=== PATIENT | male | born 1950 | race Caucasian/White ===

== ENCOUNTER → 2016-11-03 | Outpatient (CLI) | payer MEDICARE, BC ==
[~2016-11-03] MED LIST: AMBIEN10 MG PO; ASPIRIN81 MG PO; CENTRUM SILVER1 TAB PO; COLACE100 MG PO; CPAP INH; DULCOLAX10 MG R; FIBERCON1 TAB PO; FLEXERIL10 MG PO; NEXIUM 24HR22.3 MG PO; OXYCONTIN EXTEN20 MG PO; PROBIOTIC1 EAC1 PO; REMERON 30 MG30 MG PO; ROXICODONE 5MG (5 MG PO; SENNA8.6 MG PO; TRAMADOL HCL50 MG PO; TYLENOL EXTRA500 MG PO; VITAMIN D1000 UNIT PO; ZANTAC (NON-FO150 MG PO; ZYRTEC10 MG PO
== END | disposition disaster alternative care site (69) ==
LOC: GRAD 07:37
DX: M54.9 Dorsalgia, unspecified (principal); R20.0 Anesthesia of skin; M48.06 Spinal stenosis, lumbar region; Z98.890 Other specified postprocedural states

== ENCOUNTER 2016-11-17 15:00 | Inpatient (IN) | payer MEDICARE, BC ==
[~2016-11-17] VITALS: Ht 175.3 cm; Wt 93.6 kg
--- NOTE | ~2016-11-17 | OR ---
PATIENT'S NAME: CARMENCITA PERRY [facility] AGE: 66 Y [address] ROOM: [id number] [place], [place] [address] LOCATION: [facility] ADMIT DATE: 11/18/2016 OR/Procedure Report DISCHARGE DATE: FAMILY PHYSICIAN: Bony Florez MD ATTENDING PHYSICIAN: LAUREN LANDEROS SURGEON: Lauren Landeros MD BUSINESS PROJECT ANALYST: DATE OF PROCEDURE: 11/18/2016 ANESTHESIOLOGIST: Eddy Snell MD ANESTHESIA: General. COMPLICATIONS: None. ESTIMATED BLOOD LOSS: 200 mL. PREOPERATIVE DIAGNOSES: 1. L1-L2 severe spinal stenosis with neurogenic claudication. 2. L2-L3 severe spinal stenosis with neurogenic claudication. 3. History of L3-L4, L4-L5, and L5-S1 laminectomy. 4. L1-L2, L2-L3, L3-L4, L4-L5, and L5-S1 severe facet arthropathy with mechanical low back pain. POSTOPERATIVE DIAGNOSES: 1. L1-L2 severe spinal stenosis with neurogenic claudication. 2. L2-L3 severe spinal stenosis with neurogenic claudication. 3. History of L3-L4, L4-L5, and L5-S1 laminectomy. 4. L1-L2, L2-L3, L3-L4, L4-L5, and L5-S1 severe facet arthropathy with mechanical low back pain. PROCEDURES PERFORMED: 1. L1-L2 decompressive laminectomy, partial bilateral inferior facetectomy, and decompression of the neural elements for spinal stenosis. 2. L2-L3 decompressive laminectomy, partial bilateral inferior facetectomy, and decompression of the neural elements for spinal stenosis. 3. L1-L2, L2-L3, L3-L4, L4-L5, and L5-S1 posterolateral non-instrumented fusion. 4. Intraoperative fluoroscopy and interpretation. 5. Insertion of a mixture of allograft, autograft, and DBM bone from L1 to S1 for posterolateral arthrodesis. 6. Decortication of bilateral L1-L2, bilateral L2-L3, bilateral L3-L4, bilateral L4-L5, and bilateral L5-S1 facet joints for posterolateral arthrodesis. PATIENT'S NAME: CARMENCITA PERRY [facility] AGE: 66 Y [address] ROOM: [id number] [place], [place] [address] LOCATION: [facility] ADMIT DATE: 11/18/2016 OR/Procedure Report DISCHARGE DATE: FAMILY PHYSICIAN: Bony Florez MD ATTENDING PHYSICIAN: LAUREN LANDEROS CLINICAL HISTORY: The patient is a 66-year-old male patient, who was diagnosed clinically and on imaging to have the above-mentioned diagnoses. I recommended the above-mentioned surgery to the patient to try to relieve his symptoms and improve his daily functioning. I discussed the procedure itself, the benefits, and all the risks associated with it. The patient was interested in proceeding with surgery so he was brought in for the elective operation. DESCRIPTION OF PROCEDURE: The patient was seen in the preoperative care unit and the correct side was marked. Then, he was transferred to the main operating theater, was given general anesthetic, and underwent endotracheal intubation without complications. Preoperative antibiotics were given. Guerra catheter and calf compressors were used throughout the procedure. Then, the patient was carefully turned to prone position on a gel-padded Hiram table and all his joints and bony prominences were securely padded. The previous midline lumbar scar was identified. Then, I marked a midline lumbar incision extending from the spinous process of L1 down to S1 level. The surgical site was prepped and draped as per usual. The proposed skin incision was infiltrated with 0.25% Marcaine with epinephrine. Skin was sharply opened down to the subcutaneous tissue, then using a monopolar cautery, I exposed the posterior elements of L1, L2, L3, L4, L5, and S1 vertebra. As expected, there was a laminectomy defect at L3-L4, L4- L5, and L5-S1 levels. I had no complications during the exposure. The L1-L2, L2-L3, L3-L4, L4-L5, and L5-S1 facet joints were exposed bilaterally. The correct level was then confirmed using intraoperative fluoroscopy. I started by performing the laminectomy at L1-L2 and L2-L3 levels. The spinous processes of L1, L2 vertebra were removed using Leksell. Then, using a high-speed Midas Mc drill, I drilled away the L1, L2 laminae. I also did bilateral partial inferior facetectomy at L1, and L2 vertebra. The ligamentum flavum was exposed at L1-L2 and L2-L3 levels. As expected, there was severe spinal stenosis. The ligamentum flavum was completely removed at L1-L2 and L2- L3 levels without any complications. I then undercut the medial projecting osteophytes from the L2 and L3 superior facets. The thecal sac was completely decompressed at those two levels. I had no complications. Then, I proceeded to irrigate the wound. The wound was irrigated with bacitracin-containing irrigation. Then, I proceeded to decorticate the facet joints at L1-L2, L2-L3, L3-L4, L4-L5, and L5-S1 level. The L5-S1 level was included as I noticed severe facet arthropathy intraoperatively. Using a high- speed Midas Mc drill, those facet joints were decorticated to facilitate posterolateral non-instrumented fusion. I had no complications. Then, the dura was covered with Gelfoam. Then, a mixture of allograft, PATIENT'S NAME: CARMENCITA PERRY [facility] AGE: 66 Y [address] ROOM: [place] [address] LOCATION: [facility] ADMIT DATE: 11/18/2016 OR/Procedure Report DISCHARGE DATE: FAMILY PHYSICIAN: Bony Florez MD ATTENDING PHYSICIAN: LAUREN LANDEROS autograft, and DBM bone was placed posterolaterally for the arthrodesis from L1 down to S1 without any complications. Hemostasis was achieved. Then, 1 Hemovac drains were inserted, tunneled, and secured to the skin with 3-0 Prolene. Then, the wound was closed in layers with #1 Vicryl to the paraspinal muscles, #1 Vicryl to the lumbar fascia, 2-0 Vicryl to the subcutaneous tissue, and antonia for the skin. Sterile dressing was applied. At the end of the operation, the instrument and sponge counts were correct. The patient tolerated the operation without any complications. LAUREN LANDEROS MD AB/modl /[id number] CC: Bony Florez MD d: 11/18/162034 t: 11/19/161654, OPERATIVE SUMMARY
--- NOTE | ~2016-11-17 | DS ---
PATIENT'S NAME: CARMENCITA PERRY [facility] AGE: 66 Y [address] ROOM: [address] [address] LOCATION: N ADMIT DATE: 11/18/2016 Discharge Summary DISCHARGE DATE: 11/22/2016 FAMILY PHYSICIAN: Bony Florez MD ATTENDING PHYSICIAN: Lauren Landeros ADMISSION MAIN DIAGNOSES: 1. L1-2 an dL2-3 severe spinal stenosis with neurogenic claudication. 2. L1-2, L2-3, L3-4, L4-5, and L5-S1 severe facet arthropathy with mechanical low back pain. 3. History of L3-4, L4-5, and L5-S1 laminectomy in the past. DISCHARGE MAIN DIAGNOSES: 1. L1-2 an dL2-3 severe spinal stenosis with neurogenic claudication. 2. L1-2, L2-3, L3-4, L4-5, and L5-S1 severe facet arthropathy with mechanical low back pain. 3. History of L3-4, L4-5, and L5-S1 laminectomy in the past. PROCEDURES DURING ADMISSION: 1. L1-2 and L2-3 decompressive laminectomy for stenosis. 2. L1-S1 posterolateral noninstrumented fusion. COMPLICATIONS DURING ADMISSION: None. DISCHARGE INSTRUCTIONS AND FOLLOWUP APPOINTMENTS: 1. Family physician on December 01, 2016, for staple removal. 2. Myself on December 03, 2016, for assessment. 3. Corset brace when mobilizing. 4. No heavy lifting, no back twisting, no forward bending. 5. Call my office for any concerns regarding the wound healing or for any new neurologic deficits. 6. Keep the dressing on and dry until November 29, then take off and keep the wound open to air. DISCHARGE MEDICATIONS: 1. Resume all pre-admission medications. 2. Aspirin 81 mg once daily (start on November 28, 2016). 3. OxyContin 20 mg p.o. b.i.d. 4. Oxycodone 5 to 10 mg every 4 hours p.r.n. 5. Tramadol 50 to 100 mg p.o. every 6 hours p.r.n. 6. Flexeril 10 mg p.o. every 8 hours p.r.n. HOSPITAL COURSE: The above patient was admitted electively to the hospital for the above-mentioned surgery. He underwent an unremarkable operation. Postoperatively, the patient did very well. His surgical pain was initially PATIENT'S NAME: CARMENCITA PERRY [facility] AGE: 66 Y [address] ROOM: [id number] [place] [id number] LOCATION: [facility] ADMIT DATE: 11/18/2016 Discharge Summary DISCHARGE DATE: 11/22/2016 FAMILY PHYSICIAN: Bony Florez MD ATTENDING PHYSICIAN: Lauren Landeros managed on patient-controlled analgesia, and then he was switched to p.o. pain medications. His preoperative neurogenic claudication symptoms completely resolved after the surgery. The patient was mobilized by physiotherapy and occupational therapy, and he did very well. He had no new neurologic deficits. He also had postoperative lumbar spine x-ray, and that showed no change in the lumbar lordosis. On the day of discharge, the patient was examined. His surgical pain was better. He was mobilizing with minimal assistance. I examined the wound, and it was healing very well. Neurologically, the patient was stable. I reviewed the discharge instructions with the patient and his family, and the patient was discharged home today. Just to mention, that we have arranged for home health to see the patient post discharge for wound assessment and help with mobilization. MD SRINATH BOSCH/modl /[id number] CC: Bony Florez MD d: 11/22/16 1222 t: 11/22/16 1536, DISCHARGE SUMMARY
[~2016-11-17 15:00] MED LIST changes: -ASPIRIN81 MG PO; -COLACE100 MG PO; -DULCOLAX10 MG R; -FLEXERIL10 MG PO; -OXYCONTIN EXTEN20 MG PO; -ROXICODONE 5MG (5 MG PO; -TRAMADOL HCL50 MG PO
[2016-11-18] MEDS ORDERED: ASPIRIN81 MG PO (07:11)
[2016-11-19 04:24] LABS: HEMATOCRIT 31.5 % (37.0-53.0); HEMOGLOBIN 10.9 g/dL (11.0-16.0); MCH 28.5 pg (27.0-34.0); MCHC 34.6 gm/dL (32.0-36.5); MCV 82.2 fl (83.0-98.0); MPV 9.1 fl (9.4-12.4); RBC 3.83 M/uL (3.50-5.50); RDW-CV 14.8 % (11.9-14.6); WBC 7.7 K/uL (4.0-11.0)
[2016-11-20 06:18] LABS: HEMATOCRIT 30.8 % (37.0-53.0); HEMOGLOBIN 10.2 g/dL (11.0-16.0); MCH 27.3 pg (27.0-34.0); MCHC 33.1 gm/dL (32.0-36.5); MCV 82.4 fl (83.0-98.0); RBC 3.74 M/uL (3.50-5.50); RDW-CV 15.1 % (11.9-14.6); WBC 5.7 K/uL (4.0-11.0)
[2016-11-20 06:24] LABS: ANION GAP 9.8 (10.0-19.0); POTASSIUM 3.8 mMol/L (3.7-5.1)
[2016-11-22] MEDS ORDERED: COLACE100 MG PO (13:25)
[2016-11-22] MEDS ORDERED: OXYCONTIN EXTEN20 MG PO (13:27)
[2016-11-22] MEDS ORDERED: DULCOLAX10 MG R (13:28)
[2016-11-22] MEDS ORDERED: FLEXERIL10 MG PO (13:29)
[2016-11-22] MEDS ORDERED: ROXICODONE 5MG (5 MG PO (13:29)
[2016-11-22] MEDS ORDERED: TRAMADOL HCL50 MG PO (13:30)
== END 2016-11-22 14:25 | disposition home health service (06) | DRG 460 ==
LOC: G3N 11-18 05:46
PROVIDERS: ADMIT Neurological Surgery
PROC: 0SG1371 Fusion of 2 or more Lumbar Vertebral Joints with Autologous Tissue Substitute, Posterior Approach, Posterior Column, Percutaneous Approach (ICD-10-PCS; principal; 2016-11-18)
PROC: 30233H0 Transfusion of Autologous Whole Blood into Peripheral Vein, Percutaneous Approach (ICD-10-PCS; principal; 2016-11-18)
PROC: 0SG3371 Fusion of Lumbosacral Joint with Autologous Tissue Substitute, Posterior Approach, Posterior Column, Percutaneous Approach (ICD-10-PCS; principal; 2016-11-18)
DX: M48.06 Spinal stenosis, lumbar region (principal)
CPT/HCPCS: C1713; J0131; J0690; J1100; J1170; J1644; J2001; J2250; J2405; J3010; J7030; P9045